=== PATIENT | female | born 1980 | race Caucasian/White ===

== ENCOUNTER 2017-03-15 09:20 | Emergency (ER) | payer OTHER, BC ==
[2017-03-15 09:36] VITALS: BP 123/75
[2017-03-15] MEDS ORDERED: Diphtheria,Pertussis(Acell),Tetanus Vaccine 0.5 ML Syringe IM ONE (09:48)
--- NOTE | 2017-03-15 09:49 | EDM.PDOC ---
ED HPI GENERAL MEDICAL PROBLEM - General Chief Complaint: Laceration Stated Complaint: SMASHED THUMB Time Seen by Provider: 03/15/17 09:32 Source of Information: Reports: Patient History Limitations: Reports: No Limitations - History of Present Illness INITIAL COMMENTS - FREE TEXT/NARRATIVE: History of present illness: []Patient cut her left thumb with a metal machine called a "thief". She has a thin skin flap the medial side of her distal thumb. Patient is not up-to-date with tetanus she is requesting wound be cleaned. Review of systems: As per history of present illness and below otherwise all systems reviewed and negative. Past medical history: As per history of present illness and as reviewed below otherwise noncontributory. Surgical history: As per history of present illness and as reviewed below otherwise noncontributory. Social history: No reported history of drug or alcohol abuse. Family history: As per history of present illness and as reviewed below otherwise noncontributory. Physical exam: General: Well developed, well nourished in NAD HEENT: Atraumatic, normocephalic, pupils reactive, negative for conjunctival pallor or scleral icterus, mucous membranes moist, throat clear, neck supple, nontender, trachea midline. Lungs: Clear to auscultation, breath sounds equal bilaterally, chest nontender. Heart: S1S2, regular, negative for clicks, rubs, or JVD. Abdomen: Soft, nondistended, nontender. Negative for masses or hepatosplenomegaly. Negative for costovertebral tenderness. Pelvis: Stable nontender. Genitourinary: Deferred. Rectal: Deferred. Extremities: Small 1 cm by half centimeter skin flap no active bleeding wound cleaned, negative for cords or calf pain. Neurovascular unremarkable. Neuro: Awake, alert, oriented. Cranial nerves II through XII unremarkable. Cerebellum unremarkable. Motor and sensory unremarkable throughout. Exam nonfocal. Diagnostics: [] Therapeutics: []Wound cleaned, Steri-Stripped and tetanus given Impression: []Thumb superficial laceration skin flap Plan: []Let Steri-Strips fall off return if any redness, swelling, drainage or fevers occur. Definitive disposition and diagnosis as appropriate pending reevaluation and review of above. left hand Pain Score (Numeric/FACES): 3 - Related Data Allergies Allergy/AdvReac Type Severity Reaction Status Date / Time Penicillins Allergy Rash Verified 03/15/17 09:32 vancomycin Allergy Rash Verified 03/15/17 09:32 Home Meds: Home Meds Sertraline [Zoloft] 75 mg PO DAILY 06/25/14 [History] Diclofenac Sodium [Voltaren] 50 mg PO BIDMEALS PRN #14 tab.ec 05/24/16 [Rx] Pantoprazole [Protonix] 40 mg PO ACBREAKFAST 05/24/16 [History] Varenicline Tartrate [Chantix] 0.5 mg PO BID 03/15/17 [History] Past Medical History Other HEENT History: Recent recovery from Laryngitis, Upper resp symptoms "good now" Other Cardiovascular History: Peripheral edema Respiratory History: Reports: None Other Gastrointestinal History: Occasional heartburn Genitourinary History: Reports: None 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: 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 History: Reports: None Other Neuro History: Occasional headaches/migraines Psychiatric History: Reports: Anxiety, Depression Endocrine/Metabolic History: Reports: None Hematologic History: Reports: None Immunologic History: Reports: None Oncologic (Cancer) History: Reports: None Dermatologic History: Reports: None - Infectious Disease History Infectious Disease History: Reports: None - Past Surgical History HEENT Surgical History: Reports: Tonsillectomy Female Surgical History: Reports: Tubal Ligation Other 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 Surgeries/Procedures:: Bilateral arthroscopies to knees, Open Left Knee procedure with 'screws and bone graft" Social & Family History - Family History Family Medical History: Noncontributory - Tobacco Use Smoking Status *Q: Current Every Day Smoker Years of Tobacco use: 15 Packs/Tins Daily: 1 - Caffeine Use Caffeine Use: Reports: Energy Drinks, Soda - Alcohol Use Days Per Week of Alcohol Use: 0 - Recreational Drug Use Recreational Drug Use: No Drug Use in Last 12 Months: No ED ROS GENERAL - Review of Systems Review Of Systems: See Below ED EXAM, SKIN/RASH Exam: See Below (See history of present illness) Course - Vital Signs Last Recorded V/S: Last Vital Signs Temp 36.1 C 03/15/17 09:34 Pulse 62 03/15/17 09:34 Resp 16 03/15/17 09:34 BP 123/75 03/15/17 09:34 Pulse Ox 98 03/15/17 09:34 Departure - Departure Time of Disposition: 09:46 Disposition: Home, Self-Care 01 Condition: Good Clinical Impression: Laceration of skin of left thumb Qualifiers: Encounter type: initial encounter Qualified Code(s): S61.012A - Laceration without foreign body of left thumb without damage to nail, initial encounter - Discharge Information Forms: ED Department Discharge Additional Instructions: The following information is given to patients seen in the emergency department who are being discharged to home. This information is to outline your options for follow-up care. We provide all patients seen in our emergency department with a follow-up referral. The need for follow-up, as well as the timing and circumstances, are variable depending upon the specifics of your emergency department visit. If you don't have a primary care physician on staff, we will provide you with a referral. We always advise you to contact your personal physician following an emergency department visit to inform them of the circumstance of the visit and for follow-up with them and/or the need for any referrals to a consulting specialist. The emergency department will also refer you to a specialist when appropriate. This referral assures that you have the opportunity for follow-up care with a specialist. All of these measure are taken in an effort to provide you with optimal care, which includes your follow-up. Under all circumstances we always encourage you to contact your private physician who remains a resource for coordinating your care. When calling for follow-up care, please make the office aware that this follow-up is from your recent emergency room visit. If for any reason you are refused follow-up, please contact the [facility] at and asked to speak to the emergency department charge nurse. Tylenol Motrin for pain, wound clean and dry, return if any redness, swelling, drainage or fevers occur. Follow-up with primary care as needed [facility] [address] [place] [id number]
== END 2017-03-15 10:12 | disposition home or self-care (01) ==
LOC: MW.ED 09:20
DX: S61.012A Laceration without foreign body of left thumb without damage to nail, initial encounter (principal); F41.9 Anxiety disorder, unspecified; F32.9 Major depressive disorder, single episode, unspecified; F17.210 Nicotine dependence, cigarettes, uncomplicated; Z98.890 Other specified postprocedural states; Z88.0 Allergy status to penicillin; Z88.1 Allergy status to other antibiotic agents; Z79.899 Other long term (current) drug therapy; W23.1XXA Caught, crushed, jammed, or pinched between stationary objects, initial encounter
CPT/HCPCS: 90471; 90715; 99282; 99282-25

== ENCOUNTER 2017-09-01 09:55 | Emergency (ER) | payer BC ==
[2017-09-01] MEDS ORDERED: Sodium Chloride 0.9% 1,000 ML IV ONE (10:13)
--- NOTE | 2017-09-01 10:24 | EDM.PDOC ---
ED HPI GENERAL MEDICAL PROBLEM - General Chief Complaint: General Stated Complaint: SICK/HEADACHE/EAR/CHEST PAIN Time Seen by Provider: 09/01/17 10:07 Source of Information: Reports: Patient History Limitations: Reports: No Limitations - History of Present Illness INITIAL COMMENTS - FREE TEXT/NARRATIVE: HISTORY AND PHYSICAL: History of present illness: Patient is a 37 year old female who presents to the emergency room with complaints of body aches, ear pain bilaterally, loose stools, sore throat, fever , nonproductive cough and midsternal chest pain with coughing (only when coughing- nonradiating) x 1 week. Patient states she has been eating and drinking appropriately. Denies any chest pain, shortness of breath, abdominal pain, nausea, or vomiting. Has not received the [id number] influenza vaccine. Daily smoker, 1/2-1 ppd x 15 years Review of systems: As per history of present illness and below otherwise all systems reviewed and negative. Past medical history: As per history of present illness and as reviewed below otherwise noncontributory. Surgical history: As per history of present illness and as reviewed below otherwise noncontributory. Social history: No reported history of drug or alcohol abuse. Family history: As per history of present illness and as reviewed below otherwise noncontributory. Physical exam: General: Well-developed and well-nourished 37 she'll female. Alert and oriented. Nontoxic appearing. HEENT: Atraumatic, normocephalic, pupils reactive, negative for conjunctival pallor or scleral icterus, mucous membranes moist, tympanic membranes normal bilaterall, mild erythema with no exudate, neck supple, no lymphadenopathy, nontender, trachea midline. No drooling or trismus. No meningeal signs. Lungs: Clear to auscultation, breath sounds equal bilaterally, chest nontender. Heart: S1S2, regular rate and rhythm without overt murmurs Abdomen: Soft, nondistended, nontender. Negative for masses or hepatosplenomegaly. Negative for costovertebral tenderness. Pelvis: Stable nontender. Genitourinary: Deferred. Rectal: Deferred. Extremities: Atraumatic, ambulatory, moves all extremities per self without difficulty or deficits, negative for cords or calf pain. Neurovascular unremarkable. Neuro: Awake, alert, oriented. Cranial nerves II through XII unremarkable. Cerebellum unremarkable. Motor and sensory unremarkable throughout. Exam nonfocal. Patient states that she has a coworker that has bronchitis at work and would like minimal testing done today as she is in a hurry. I will do routine lab work including a troponin due to her complaint of midsternal chest pain with coughing and a chest x-ray. She declines an EKG or IV fluid/medications at this time. Upon going in to talk with the patient about her lab results she states she is unsatisfied with her care. He did have a CODE BLUE that was in progress prior to entering her room and the emergency room was busy. This was explained to the patient and she voices understanding. We discussed her discharge instructions and the prescription she will receive. Since she is a smoker and has a history of asthma and will treat her as a bronchitis with antibiotics. Tylenol with codeine has been given for her cough and sore throat. Informed her that this will make her drowsy so only take it when she is at home or during the nighttime. An inhaler has been given as well to help her cough and asthma symptoms. She voices understanding and is agreeable to plan of care. She does request 2 days off of work, which I will provide. She'll follow-up with her primary caregiver in the next 1-2 days if her symptoms do not improve. Diagnostics: CBC, CMP, troponin, UA, urine , infection, strep, one view chest Therapeutics: IV fluids/Toradol-declines Impression: Bronchitis Plan: 1. Please take the prescriptions you have been given as directed. A Z-Marcial has been given further bronchitis. Please quit smoking. An inhaler has been prescribed for you, may take 1-2 puffs every 4 hours as needed. 2. Tylenol with codeine has been prescribed for your cough and throat pain. This may make you drowsy suture do not take it will driving her needing to be functioning at work. Ibuprofen as needed as well for pain management. 3. Please follow-up with your primary caregiver in the next 1-2 days. Return to the ED as needed and as discussed. Definitive disposition and diagnosis as appropriate pending reevaluation and review of above. Onset Date: 08/26/17 Duration: Week(s): Location: Reports: Head, Chest, Generalized middle chest Pain Score (Numeric/FACES): 10 - Related Data Allergies Allergy/AdvReac Type Severity Reaction Status Date / Time Penicillins Allergy Rash Verified 09/01/17 10:11 vancomycin Allergy Rash Verified 09/01/17 10:11 Home Meds: Home Meds Sertraline [Zoloft] 75 mg PO DAILY 06/25/14 [History] Diclofenac Sodium [Voltaren] 50 mg PO BIDMEALS PRN #14 tab.ec 05/24/16 [Rx] Pantoprazole [Protonix] 40 mg PO ACBREAKFAST 05/24/16 [History] Varenicline Tartrate [Chantix] 0.5 mg PO BID 03/15/17 [History] Past Medical History HEENT History: Reports: Other (See Below) Other HEENT History: Recent recovery from Laryngitis, Upper resp symptoms "good now" Cardiovascular History: Reports: Other (See Below) Other Cardiovascular History: Peripheral edema Respiratory History: Reports: None Gastrointestinal History: Reports: Other (See Below) Other Gastrointestinal History: Occasional heartburn Genitourinary History: Reports: None 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: 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 History: Reports: None Neurological History: Reports: Other (See Below) Other Neuro History: Occasional headaches/migraines Psychiatric History: Reports: Anxiety, Depression Endocrine/Metabolic History: Reports: None Hematologic History: Reports: None Immunologic History: Reports: None Oncologic (Cancer) History: Reports: None Dermatologic History: Reports: None - Infectious Disease History Infectious Disease History: Reports: None - Past Surgical History HEENT Surgical History: Reports: Tonsillectomy Cardiovascular Surgical History: Reports: None Respiratory Surgical History: Reports: None GI Surgical History: Reports: None Female Surgical History: Reports: Tubal Ligation Neurological Surgical History: Reports: None Other 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 Surgeries/Procedures:: Bilateral arthroscopies to knees, Open Left Knee procedure with 'screws and bone graft" Dermatological Surgical History: Reports: None Social & Family History - Family History Family Medical History: Noncontributory - Tobacco Use Smoking Status *Q: Current Every Day Smoker Years of Tobacco use: 15 Packs/Tins Daily: 0.5 - Caffeine Use Caffeine Use: Reports: Coffee, Energy Drinks, Soda, Tea - Alcohol Use Days Per Week of Alcohol Use: 0 - Recreational Drug Use Recreational Drug Use: No Drug Use in Last 12 Months: No ED ROS GENERAL - Review of Systems Review Of Systems: ROS reveals no pertinent complaints other than HPI. ED EXAM, GENERAL - Physical Exam Exam: See Below (See dictation) Course - Vital Signs Last Recorded V/S: Last Vital Signs Temp 96.9 F 09/01/17 10:11 Pulse 70 09/01/17 10:11 Resp 18 09/01/17 10:11 BP 105/67 09/01/17 10:11 Pulse Ox 96 09/01/17 10:11 - Orders/Labs/Meds Orders: Active Orders 24 hr Category Date Time Status EKG Documentation Completion [RC] STAT Care 09/01/17 10:13 Inactive Chest 1V Frontal [CR] Stat Exams 09/01/17 10:13 Taken CULTURE STREP A CONFIRMATION [RM] Stat Lab 09/01/17 10:20 Results STREP SCRN A RAPID W CULT CONF [RM] Stat Lab 09/01/17 10:20 Results Labs: Laboratory Tests 09/01/17 09/01/17 09/01/17 Range/Units 10:16 10:16 10:54 WBC 12.34 H (4.0-11.0) K/uL RBC 4.61 (4.30-5.90) M/uL Hgb 14.7 (12.0-16.0) g/dL Hct 44.4 (36.0-46.0) % MCV 96.3 (80.0-98.0) fL MCH 31.9 (27.0-32.0) pg MCHC 33.1 (31.0-37.0) g/dL RDW Std Deviation 44.4 (28.0-62.0) fl RDW Coeff of Renetta 13 (11.0-15.0) % Plt Count 252 (150-400) K/uL MPV 9.70 (7.40-12.00) fL Neut % (Auto) 77.9 (48.0-80.0) % Lymph % (Auto) 14.9 L (16.0-40.0) % Nye % (Auto) 6.0 (0.0-15.0) % Eos % (Auto) 1.0 (0.0-7.0) % Baso % (Auto) 0.2 (0.0-1.5) % Neut # (Auto) 9.6 H (1.4-5.7) K/uL Lymph # (Auto) 1.8 (0.6-2.4) K/uL Nye # (Auto) 0.7 (0.0-0.8) K/uL Eos # (Auto) 0.1 (0.0-0.7) K/uL Baso # (Auto) 0.0 (0.0-0.1) K/uL Nucleated RBC % 0.0 /100WBC Nucleated RBCs # 0 K/uL Sodium (136-146) mmol/L Potassium (3.5-5.1) mmol/L Chloride (98-110) mmol/L Carbon Dioxide (21-31) mmol/L BUN (6.0-23.0) mg/dL Creatinine (0.6-1.5) mg/dL Est Cr Clr Drug Dosing mL/min Estimated GFR (MDRD) ml/min Glucose (60-110) mg/dL Calcium (8.8-10.8) mg/dL Total Bilirubin (0.1-1.5) mg/dL AST (5-40) IU/L ALT (8-54) IU/L Alkaline Phosphatase (40-150) Troponin I (0.0-0.29) NG/ML Total Protein (6.0-8.0) g/dL Albumin (3.5-5.0) g/dL Globulin (2.0-3.5) g/dL Albumin/Globulin Ratio (1.3-2.8) Urine Color YELLOW Urine Appearance CLEAR Urine pH 6.5 (5.0-8.0) Ur Specific [place] 1.020 (1.001-1.035) Urine Protein NEGATIVE (NEGATIVE) mg/dL Urine Glucose (UA) NEGATIVE (NEGATIVE) mg/dL Urine Ketones NEGATIVE (NEGATIVE) mg/dL Urine Occult Blood SMALL H (NEGATIVE) Urine Nitrite NEGATIVE (NEGATIVE) Urine Bilirubin NEGATIVE (NEGATIVE) Urine Urobilinogen 0.2 (<2.0) EU/dL Ur Leukocyte Esterase NEGATIVE (NEGATIVE) Urine RBC 0-2 (0-2/HPF) Urine WBC 0-1 (0-5/HPF) Ur Epithelial Cells FEW (NONE-FEW) Urine Bacteria FEW (NEGATIVE) Urine Mucus LIGHT (NONE-MOD) Urine Yeast RARE Urine HCG, Qual NEGATIVE (NEGATIVE) 09/01/17 Range/Units 10:54 WBC (4.0-11.0) K/uL RBC (4.30-5.90) M/uL Hgb (12.0-16.0) g/dL Hct (36.0-46.0) % MCV (80.0-98.0) fL MCH (27.0-32.0) pg MCHC (31.0-37.0) g/dL RDW Std Deviation (28.0-62.0) fl RDW Coeff of Renetta (11.0-15.0) % Plt Count (150-400) K/uL MPV (7.40-12.00) fL Neut % (Auto) (48.0-80.0) % Lymph % (Auto) (16.0-40.0) % Nye % (Auto) (0.0-15.0) % Eos % (Auto) (0.0-7.0) % Baso % (Auto) (0.0-1.5) % Neut # (Auto) (1.4-5.7) K/uL Lymph # (Auto) (0.6-2.4) K/uL Nye # (Auto) (0.0-0.8) K/uL Eos # (Auto) (0.0-0.7) K/uL Baso # (Auto) (0.0-0.1) K/uL Nucleated RBC % /100WBC Nucleated RBCs # K/uL Sodium 136 (136-146) mmol/L Potassium 4.0 (3.5-5.1) mmol/L Chloride 104 (98-110) mmol/L Carbon Dioxide 25 (21-31) mmol/L BUN 9 (6.0-23.0) mg/dL Creatinine 0.7 (0.6-1.5) mg/dL Est Cr Clr Drug Dosing 108.04 mL/min Estimated GFR (MDRD) > 60.0 ml/min Glucose 86 (60-110) mg/dL Calcium 9.2 (8.8-10.8) mg/dL Total Bilirubin 0.7 (0.1-1.5) mg/dL AST 19 (5-40) IU/L ALT 24 (8-54) IU/L Alkaline Phosphatase 92 (40-150) Troponin I < 0.10 (0.0-0.29) NG/ML Total Protein 6.9 (6.0-8.0) g/dL Albumin 4.1 (3.5-5.0) g/dL Globulin 2.8 (2.0-3.5) g/dL Albumin/Globulin Ratio 1.5 (1.3-2.8) Urine Color Urine Appearance Urine pH (5.0-8.0) Ur Specific [place] (1.001-1.035) Urine Protein (NEGATIVE) mg/dL Urine Glucose (UA) (NEGATIVE) mg/dL Urine Ketones (NEGATIVE) mg/dL Urine Occult Blood (NEGATIVE) Urine Nitrite (NEGATIVE) Urine Bilirubin (NEGATIVE) Urine Urobilinogen (<2.0) EU/dL Ur Leukocyte Esterase (NEGATIVE) Urine RBC (0-2/HPF) Urine WBC (0-5/HPF) Ur Epithelial Cells (NONE-FEW) Urine Bacteria (NEGATIVE) Urine Mucus (NONE-MOD) Urine Yeast Urine HCG, Qual (NEGATIVE) Meds: Medications Discontinued Medications Generic Name Dose Route Start Last Admin Trade Name Freq PRN Reason Stop Dose Admin Sodium Chloride 1,000 mls @ 999 mls/hr 09/01/17 10:13 09/01/17 10:26 Normal Saline IV 09/01/17 11:13 Not Given STAT ONE Departure - Departure Time of Disposition: 11:29 Disposition: Home, Self-Care 01 Clinical Impression: Bronchitis - Discharge Information Instructions: Acute Bronchitis Referrals: Osmin Fatima MD [Primary Care Provider] - Forms: ED Department Discharge Additional Instructions: My general discharge The following information is given to patients seen in the emergency department who are being discharged to home. This information is to outline your options for follow-up care. We provide all patients seen in our emergency department with a follow-up referral. The need for follow-up, as well as the timing and circumstances, are variable depending upon the specifics of your emergency department visit. If you don't have a primary care physician on staff, we will provide you with a referral. We always advise you to contact your personal physician following an emergency department visit to inform them of the circumstance of the visit and for follow-up with them and/or the need for any referrals to a consulting specialist. The emergency department will also refer you to a specialist when appropriate. This referral assures that you have the opportunity for follow-up care with a specialist. All of these measure are taken in an effort to provide you with optimal care, which includes your follow-up. Under all circumstances we always encourage you to contact your private physician who remains a resource for coordinating your care. When calling for follow-up care, please make the office aware that this follow-up is from your recent emergency room visit. If for any reason you are refused follow-up, please contact the [facility] at and asked to speak to the emergency department charge nurse. [facility] [address] [place] [phone] 1. Please take the prescriptions you have been given as directed. A Z-Marcial has been given further bronchitis. Please quit smoking. An inhaler has been prescribed for you, may take 1-2 puffs every 4 hours as needed. 2. Tylenol with codeine has been prescribed for your cough and throat pain. This may make you drowsy suture do not take it will driving her needing to be functioning at work. Ibuprofen as needed as well for pain management. 3. Please follow-up with your primary caregiver in the next 1-2 days. Return to the ED as needed and as discussed. - My Orders Last 24 Hours: My Active Orders 09/01/17 10:13 EKG Documentation Completion [RC] STAT Chest 1V Frontal [CR] Stat 09/01/17 10:20 CULTURE STREP A CONFIRMATION [RM] Stat STREP SCRN A RAPID W CULT CONF [] Stat - Assessment/Plan Last 24 Hours: My Active Orders 09/01/17 10:13 EKG Documentation Completion [RC] STAT Chest 1V Frontal [CR] Stat 09/01/17 10:20 CULTURE STREP A CONFIRMATION [RM] Stat STREP SCRN A RAPID W CULT CONF [] Stat
[2017-09-01 11:23] LABS: CHLORIDE,CL 104 mmol/L (98-110); SODIUM,NA 136 mmol/L (136-146)
[2017-09-01 20:02] VITALS: BP 114/63
--- NOTE | 2017-09-02 13:19 | CR ---
EXAM DATE: 09/01/17 PATIENT'S AGE: 37 Patient: BROOKE LOVE Facility: [place], [place] Site . Site : [id number] Study: XRay Chest [id number]/7/2018 11:14:11 AM Ordering Physician: Doctor Singh Final Report: INDICATION: Chest pain. TECHNIQUE: AP portable upright chest. FINDINGS: Very shallow inspiration. Clear lungs. Normal heart size and pulmonary vascularity. The included skeletal thorax is unremarkable. IMPRESSION: Shallow inspiration. The chest is otherwise negative. Dictated by Javi Chicas MD @ 09/01/2017 11:23:10 AM Dictated by: Javi Chicas MD @ 09/01/2017 11:23:15 (Electronic Signature) Report Signed by Proxy. TANNER
== END 2017-09-01 11:46 | disposition home or self-care (01) ==
LOC: MW.ED 09:55
DX: J40 Bronchitis, not specified as acute or chronic (principal); F17.210 Nicotine dependence, cigarettes, uncomplicated; Z88.0 Allergy status to penicillin; Z88.1 Allergy status to other antibiotic agents; Z79.899 Other long term (current) drug therapy
CPT/HCPCS: 36415; 71045; 71045-26; 80053; 81001; 81025; 84484; 85025; 87081; 87804; 87880; 99284; 99284-25